=== PATIENT | female | born 1945 | race Caucasian/White ===

== ENCOUNTER 2021-01-09 21:07 | Emergency (ER) | payer OTHER ==
[~2021-01-09 21:07] MED LIST: FLEXERIL 10 MG10 MG PO
[2021-01-09 21:46] LABS: HEMOGLOBIN 12.1 gm/dl (12.3-15.3); RED BLOOD COUNT 3.73 M/UL (4.00-5.10); WHITE BLOOD COUNT 7.2 K/UL (4.5-11.0)
[2021-01-09 22:31] LABS: BUN/CREATININE RATIO 31 (0-10)
== END 2021-01-10 01:13 | disposition home or self-care (01) ==
LOC: ER1 21:07
PROVIDERS: Physician Assistant
DX: R07.9 Chest pain, unspecified (principal); R42 Dizziness and giddiness; N18.9 Chronic kidney disease, unspecified; I12.9 Hypertensive chronic kidney disease with stage 1 through stage 4 chronic kidney disease, or unspecified chronic kidney disease; Z90.49 Acquired absence of other specified parts of digestive tract; Z90.710 Acquired absence of both cervix and uterus; Z20.822 Contact with and (suspected) exposure to COVID-19
CPT/HCPCS: 0240U; 71045; 80053; 81001; 82550; 82553; 83605; 83735; 83874; 83880; 84484; 85025; 85610; 85730; 87086; 93005; 99284

== ENCOUNTER 2021-01-16 23:48 | Emergency (ER) | payer OTHER | END 2021-01-17 03:48 | disposition home or self-care (01) | LOC: ER1 23:48 | DX: K62.3 Rectal prolapse (principal); Z90.49 Acquired absence of other specified parts of digestive tract; Z90.710 Acquired absence of both cervix and uterus; Z88.8 Allergy status to other drugs, medicaments and biological substances | CPT/HCPCS: 99283 ==

== ENCOUNTER → 2021-01-23 | Outpatient (CLI) | payer OTHER | LOC: EXRD 10:31 | DX: N18.4 Chronic kidney disease, stage 4 (severe) (principal); N28.1 Cyst of kidney, acquired | CPT/HCPCS: 76775 ==